=== PATIENT | female | born 1985 | race Two or more races ===

== ENCOUNTER 2021-06-18 05:38 | Day surgery (SDC) | payer OTHER ==
[2021-06-18] MEDS ORDERED: MORGIDOX100 MG PO (14:22)
[2021-06-18] MEDS ORDERED: NAPR500T14 PO (14:22)
== END 2021-06-18 19:40 | disposition home or self-care (01) ==
LOC: CIR.AMB 05:38
PROVIDERS: ATTEND Obstetrics & Gynecology
DX: D25.0 Submucous leiomyoma of uterus (principal); N84.0 Polyp of corpus uteri; Z20.822 Contact with and (suspected) exposure to COVID-19